=== PATIENT | female | born 1980 | race Caucasian/White ===

== ENCOUNTER → 2021-02-23 11:36 | Outpatient (REF) | payer OTHER, SELFPAY | LOC: ANHLAB 11:36 | PROVIDERS: Visit Provider Nurse Practitioner | DX: D49.2 Neoplasm of unspecified behavior of bone, soft tissue, and skin (principal) | CPT/HCPCS: 88305 ==

== ENCOUNTER → 2021-03-23 11:02 | Outpatient (REF) | payer OTHER, SELFPAY | LOC: ANHLAB 11:02 | PROVIDERS: Visit Provider Nurse Practitioner | DX: D49.2 Neoplasm of unspecified behavior of bone, soft tissue, and skin (principal) | CPT/HCPCS: 88305 ==